=== PATIENT | female | born 1945 | race Two or more races ===

== ENCOUNTER → 2022-01-10 | Outpatient (CLI) | payer OTHER ==
[2022-01-10 08:02] LABS: Urine WBC None Seen /hpf (0 - 5)
[2022-01-10 08:15] LABS: Urine Bacteria NONE SEEN /hpf (None Seen); Urine Blood TRACE /uL (Negative)
[2022-01-10 08:38] LABS: Cholesterol 98 mg/dL (< 200); HDL Cholesterol 36 mg/dL (40-59); LDL Cholesterol 54 mg/dL (< 100); Triglycerides 230 mg/dL (< 150)
== END | disposition home or self-care (01) ==
LOC: LAB 07:29
PROVIDERS: ATTEND Internal Medicine
DX: Z00.00 Encounter for general adult medical examination without abnormal findings (principal); E78.5 Hyperlipidemia, unspecified; E11.9 Type 2 diabetes mellitus without complications; I10 Essential (primary) hypertension
CPT/HCPCS: 36415; 80061; 81001; 82043

== ENCOUNTER → 2022-08-22 | Outpatient (CLI) | payer OTHER ==
[2022-08-22 07:26] LABS: Basophils # (auto) 0.1 10 ^3/uL (0-0.2); Basophils % (auto) 0.6 % (0.0-2.0); Eosinophils # (auto) 0.3 10 ^3/uL (0-0.8); Eosinophils % (auto) 2.9 % (0.0-7.0); Hematocrit 39.8 % (36.0-46.0); Hemoglobin 13.4 g/dL (12.2-16.2); Lymphocytes # (auto) 2.7 10 ^3/uL (0.4-5.4); Lymphocytes % (auto) 25.2 % (10.0-50.0); Mean Corpuscular Hemoglobin 28.5 pg (28.0-32.0); Mean Corpuscular Hgb Conc. 33.7 g/dL (32.0-36.0); Mean Corpuscular Volume 84.7 fL (80.0-100.0); Monocytes # (auto) 0.5 10 ^3/uL (0-1.3); Neutrophils % (auto) 66.3 % (37.0-80.0); Nucleated Red Blood Cells % 0.1 %; Red Cell Distribution Width 14.4 % (11.8-14.3); White Blood Cell 10.6 10^3/uL (4.4-10.8)
[2022-08-22 08:00] LABS: Albumin 3.7 g/dL (3.4-5.0); Calcium 9.3 mg/dL (8.5-10.1); Potassium 4.5 mmol/L (3.5-5.1)
[2022-08-22 08:06] LABS: BUN/Creatinine Ratio 14.5 (10.0-20.0); Bilirubin, Total 0.5 mg/dL (0.2-1.0); Total Protein 7.9 g/dL (6.4-8.2)
== END | disposition home or self-care (01) ==
LOC: LAB 07:04
PROVIDERS: ATTEND Internal Medicine
DX: E78.5 Hyperlipidemia, unspecified (principal); R73.03 Prediabetes
CPT/HCPCS: 36415; 80053; 80061; 85025

== ENCOUNTER → 2022-11-20 | Outpatient (CLI) | payer OTHER ==
[2022-11-20 08:09] LABS: Cholesterol 106 mg/dL (< 200)
[2022-11-20 08:12] LABS: HDL Cholesterol 35 mg/dL (40-59); LDL Cholesterol 57 mg/dL (< 100); Triglycerides 228 mg/dL (< 150)
== END | disposition home or self-care (01) ==
LOC: LAB 06:26
PROVIDERS: ATTEND Internal Medicine
DX: E11.9 Type 2 diabetes mellitus without complications (principal); E78.5 Hyperlipidemia, unspecified
CPT/HCPCS: 36415; 80061; 83036

== ENCOUNTER → 2023-01-30 | Outpatient (CLI) | payer OTHER ==
[2023-01-30 08:24] LABS: Alanine Aminotransferase 19 U/L (7-40); Albumin 4.4 g/dL (3.2-4.8); Alkaline Phosphatase 105 U/L (46-116); Anion Gap 7.8 (5-15); Aspartate Aminotransferase 14 U/L (13-40); BUN/Creatinine Ratio 12.2 (10.0-20.0); Bilirubin, Total 0.4 mg/dL (0.2-1.0); Blood Urea Nitrogen 10 mg/dL (9-23); Calcium 9.5 mg/dL (8.5-10.1); Carbon Dioxide 25.2 mmol/L (20-30); Chloride 105 mmol/L (98-107); Cholesterol 105 mg/dL (< 200); Glucose 167 mg/dL (74-106); HDL Cholesterol 29 mg/dL (40-59); LDL Cholesterol 53 mg/dL (< 100); Potassium 4.1 mmol/L (3.5-5.1); Sodium 138 mmol/L (136-145); Total Protein 7.7 g/dL (5.7-8.2); Triglycerides 244 mg/dL (< 150)
== END | disposition home or self-care (01) ==
LOC: LAB 06:31
PROVIDERS: ATTEND Internal Medicine
DX: E11.9 Type 2 diabetes mellitus without complications (principal)
CPT/HCPCS: 36415; 80053; 80061; 83036

== ENCOUNTER → 2023-02-20 | Outpatient (CLI) | payer OTHER ==
[2023-02-20 07:39] LABS: Albumin 4.6 g/dL (3.2-4.8); Bilirubin, Direct 0.2 mg/dL (<0.3); Bilirubin, Total 0.5 mg/dL (0.2-1.0); Total Protein 7.9 g/dL (5.7-8.2)
== END | disposition home or self-care (01) ==
LOC: LAB 06:39
PROVIDERS: ATTEND Internal Medicine
DX: E11.9 Type 2 diabetes mellitus without complications (principal); I10 Essential (primary) hypertension; E78.5 Hyperlipidemia, unspecified
CPT/HCPCS: 36415; 80076

== ENCOUNTER → 2023-05-04 | Outpatient (CLI) | payer OTHER ==
[2023-05-04 07:26] LABS: Alanine Aminotransferase 20 U/L (7-40); Albumin 4.5 g/dL (3.2-4.8); Alkaline Phosphatase 131 U/L (46-116); Anion Gap 7 (5-15); Aspartate Aminotransferase 19 U/L (13-40); BUN/Creatinine Ratio 8.6 (10.0-20.0); Blood Urea Nitrogen 7 mg/dL (9-23); Carbon Dioxide 27 mmol/L (20-30); Chloride 105 mmol/L (98-107); Glucose 164 mg/dL (74-106); Potassium 4.5 mmol/L (3.5-5.1); Sodium 139 mmol/L (136-145)
[2023-05-04 07:27] LABS: Bilirubin, Total 0.4 mg/dL (0.2-1.0); Total Protein 7.6 g/dL (5.7-8.2)
[2023-05-04 07:56] LABS: Creatinine, Urine 79.26 mg/dL (30.0-125.0)
== END | disposition home or self-care (01) ==
LOC: LAB 06:24
PROVIDERS: ATTEND Internal Medicine
DX: I10 Essential (primary) hypertension (principal); E78.5 Hyperlipidemia, unspecified; E11.9 Type 2 diabetes mellitus without complications
CPT/HCPCS: 36415; 80053; 82043; 82570

== ENCOUNTER → 2023-08-12 | Outpatient (CLI) | payer OTHER ==
[2023-08-12 07:37] LABS: Albumin 4.3 g/dL (3.2-4.8)
[2023-08-12 07:38] LABS: Bilirubin, Direct 0.2 mg/dL (<0.3); Bilirubin, Total 0.4 mg/dL (0.2-1.0); Total Protein 7.2 g/dL (5.7-8.2)
== END | disposition home or self-care (01) ==
LOC: LAB 06:28
PROVIDERS: ATTEND Internal Medicine
DX: I10 Essential (primary) hypertension (principal); E11.9 Type 2 diabetes mellitus without complications; E78.5 Hyperlipidemia, unspecified
CPT/HCPCS: 36415; 80076; 83036

== ENCOUNTER → 2023-11-10 | Outpatient (CLI) | payer OTHER ==
[2023-11-10 06:49] LABS: Basophils # (auto) 0.1 10 ^3/uL (0-0.2); Basophils % (auto) 0.6 % (0.0-2.0); Eosinophils # (auto) 0.3 10 ^3/uL (0-0.8); Eosinophils % (auto) 3.4 % (0.0-7.0); Hematocrit 39.7 % (36.0-46.0); Hemoglobin 13.2 g/dL (12.2-16.2); Lymphocytes # (auto) 2.9 10 ^3/uL (0.4-5.4); Lymphocytes % (auto) 31.4 % (10.0-50.0); Mean Corpuscular Hemoglobin 28.3 pg (28.0-32.0); Mean Corpuscular Hgb Conc. 33.3 g/dL (32.0-36.0); Monocytes # (auto) 0.4 10 ^3/uL (0-1.3); Monocytes % (auto) 4.6 % (0.0-12.0); Neutrophils # (auto) 5.4 10 ^3/uL (1.6-8.6); Red Blood Cells 4.67 10^6/uL (4.0-5.20); Red Cell Distribution Width 14.7 % (11.8-14.3); White Blood Cell 9.1 10^3/uL (4.4-10.8)
[2023-11-10 07:19] LABS: Anion Gap 7 (5-15); Carbon Dioxide 29 mmol/L (20-30); Chloride 107 mmol/L (98-107); Potassium 4.3 mmol/L (3.5-5.1); Sodium 143 mmol/L (136-145)
[2023-11-10 07:25] LABS: Glucose 151 mg/dL (74-106)
[2023-11-10 07:26] LABS: BUN/Creatinine Ratio 10.3 (10.0-20.0); Blood Urea Nitrogen 8 mg/dL (9-23)
[2023-11-10 08:02] LABS: LDL Cholesterol 53 mg/dL (< 100); Triglycerides 175 mg/dL (< 150)
[2023-11-10 08:03] LABS: Cholesterol 100 mg/dL (< 200); HDL Cholesterol 30 mg/dL (40-59)
[2023-11-11 10:30] LABS: Urine Bacteria FEW /hpf (None Seen); Urine Blood TRACE /uL (Negative); Urine Clarity Clear (Clear); Urine Color Colorless (Yellow); Urine Protein, UAD Negative (Negative); Urine Specific Gravity 1.004 (1.001-1.035); Urine Urobilinogen Normal (Negative); Urine WBC 4 /hpf (0 - 5)
[2023-11-11 11:16] LABS: Creatinine, Urine 20.01 mg/dL (30.0-125.0)
[2023-11-11 11:18] LABS: Micro Albumin < 3.0 mg/L (<30.0)
[2023-11-11 11:32] LABS: Microalb/Creat Ratio, Urine < 14.00
== END | disposition home or self-care (01) ==
LOC: LAB 06:13
PROVIDERS: ATTEND Internal Medicine
DX: E11.9 Type 2 diabetes mellitus without complications (principal); E78.5 Hyperlipidemia, unspecified; I10 Essential (primary) hypertension
CPT/HCPCS: 36415; 80048; 80061; 81001; 82043; 82570; 83036; 85025

== ENCOUNTER → 2024-06-14 | Outpatient (CLI) | payer OTHER ==
[2024-06-14 07:14] LABS: LDL Cholesterol 46 mg/dL (< 100)
[2024-06-14 07:16] LABS: Cholesterol 98 mg/dL (< 200)
[2024-06-14 07:18] LABS: HDL Cholesterol 34 mg/dL (40-59); Triglycerides 225 mg/dL (< 150)
== END | disposition home or self-care (01) ==
LOC: LAB 06:24
PROVIDERS: ATTEND Internal Medicine
DX: E11.9 Type 2 diabetes mellitus without complications (principal); E78.5 Hyperlipidemia, unspecified
CPT/HCPCS: 36415; 80061; 83036

== ENCOUNTER → 2024-06-28 | Outpatient (CLI) | payer OTHER ==
[2024-06-28 07:07] LABS: Albumin 4.8 g/dL (3.2-4.8); Bilirubin, Direct 0.2 mg/dL (<0.3); Bilirubin, Total 0.4 mg/dL (0.2-1.0); Total Protein 7.8 g/dL (5.7-8.2)
== END | disposition home or self-care (01) ==
LOC: LAB 06:05
PROVIDERS: ATTEND Internal Medicine
DX: E72.19 Other disorders of sulfur-bearing amino-acid metabolism (principal)
CPT/HCPCS: 36415; 80076

== ENCOUNTER → 2024-09-12 | Outpatient (CLI) | payer OTHER ==
[2024-09-12 08:13] LABS: Albumin 4.5 g/dL (3.2-4.8); Bilirubin, Direct 0.2 mg/dL (<0.3); Total Protein 7.8 g/dL (5.7-8.2)
[2024-09-12 08:14] LABS: Bilirubin, Total 0.5 mg/dL (0.2-1.0)
== END | disposition home or self-care (01) ==
LOC: LAB 06:23
PROVIDERS: ATTEND Internal Medicine
DX: E11.9 Type 2 diabetes mellitus without complications (principal); E78.5 Hyperlipidemia, unspecified
CPT/HCPCS: 36415; 80061; 80076; 83036

== ENCOUNTER 2024-11-09 06:07 | Outpatient (CLI) | payer OTHER ==
[2024-11-09 07:28] LABS: Basophils # (auto) 0.1 10 ^3/uL (0-0.2); Basophils % (auto) 0.8 % (0.0-2.0); Eosinophils # (auto) 0.3 10 ^3/uL (0-0.8); Eosinophils % (auto) 3.5 % (0.0-7.0); Hematocrit 41.4 % (36.0-46.0); Hemoglobin 13.8 g/dL (12.2-16.2); Lymphocytes # (auto) 2.2 10 ^3/uL (0.4-5.4); Lymphocytes % (auto) 27.9 % (10.0-50.0); Mean Corpuscular Hemoglobin 28.1 pg (28.0-32.0); Mean Corpuscular Hgb Conc. 33.3 g/dL (32.0-36.0); Mean Corpuscular Volume 84.3 fL (80.0-100.0); Monocytes # (auto) 0.4 10 ^3/uL (0-1.3); Monocytes % (auto) 4.7 % (0.0-12.0); Neutrophils # (auto) 4.9 10 ^3/uL (1.6-8.6); Neutrophils % (auto) 63.1 % (37.0-80.0); Nucleated Red Blood Cells % 0.1 %; Platelet Count (auto) 256 10^3/uL (140-450); Red Blood Cells 4.91 10^6/uL (4.0-5.20); Red Cell Distribution Width 14.5 % (11.8-14.3); White Blood Cell 7.8 10^3/uL (4.4-10.8)
[2024-11-09 07:44] LABS: INR 1.03 (0.9-1.15); Partial Thromboplastin Time 27.1 SEC (24.5-34.5); Prothrombin Time 10.9 sec (9.3-11.8)
== END 2024-11-09 17:00 | disposition home or self-care (01) ==
LOC: LAB 06:07
PROVIDERS: ATTEND Internal Medicine
DX: Z01.812 Encounter for preprocedural laboratory examination (principal); J44.9 Chronic obstructive pulmonary disease, unspecified; R06.02 Shortness of breath
CPT/HCPCS: 36415; 85025; 85610; 85730

== ENCOUNTER 2024-11-15 07:49 | Outpatient (CLI) | payer OTHER ==
[2024-11-15 08:45] VITALS: BP 130/62; PULSE 87; RESP 28; TEMP 97.9; O2SAT 94
--- NOTE | 2024-11-15 09:06 | DVH ---
XY CHEST PORTABLE, HISTORY: POST LUNG BX COMPARISON: None None TECHNICAL DATA: 1 view of the chest was obtained. FINDINGS: Lines and tubes: None Cardiomediastinal silhouette: normal Pulmonary vasculature: normal Lung expansion: normal Lung airspace: Right basilar lung masses are visualized. Lung interstitium: normal Pleura: normal Pneumothorax: no Bones: Unremarkable Other: no IMPRESSION: No pneumothorax visualized. Right basilar lung masses are visualized.
[2024-11-15 09:15] VITALS: BP 131/66; PULSE 75; RESP 19; O2SAT 93
[2024-11-15 09:45] VITALS: BP 132/59; PULSE 73; RESP 22; O2SAT 93
--- NOTE | 2024-11-15 09:59 | DVH ---
CT CHEST WITHOUT CONTRAST, HISTORY: LUNG MASS PROCEDURE: Informed consent was obtained. The patient was placed prone on the CT scanner. A limited l ocalization CT scan of the lung was obtained. The skin overlying the lesion was prepped with chlorhex idine which was allowed to dry and draped in sterile fashion. Time out was performed. The skin and so ft tissues were infiltrated with Xylocaine, and IV sedation was administered. With intermittent CT gu idance, a 19 gauge Temno outer coaxial guiding needle was advanced into the right lung mass. The need le position was confirmed with CT scan. 2 core biopsies were obtained using Temno inner 20 gauge biop sy needle. The specimens were sent in formalin to pathology for analysis. A visceral blood patch was applied as the needle was withdrawn the needle was withdrawn, and post procedural CT obtained throug h the biopsy region. No immediate complication was identified was noted, and patient was transport to recovery in stable condition without respiratory distress. DLP = 1248 mGy-cm. FINDINGS: Limited CT scan demonstrates a soft tissue mass in the right lower lobe and the biopsy nee dle within the margin of the lung mass. No significant post biopsy hemorrhage or pneumothorax is note d IMPRESSION/PLAN: CT guided lung biopsy. Pathology pending. Bedrest until cleared by IR following post-biopsy CXRs.
[2024-11-15 10:15] VITALS: BP 117/55; PULSE 66; RESP 19; O2SAT 95
[2024-11-15 10:45] VITALS: BP 117/55; PULSE 70; RESP 18; O2SAT 96
[2024-11-15 11:15] VITALS: BP 132/60; PULSE 71; RESP 18; O2SAT 96
--- NOTE | 2024-11-15 11:36 | DVH ---
CHEST RADIOGRAPH Indication: POST LUNG BX Technique: Single frontal view of the chest was obtained Comparison: XY CHEST PORTABLE on DOS: 11/15/24, XY CHEST PORTABLE on DOS: 11/15/24 FINDINGS: Lines and tubes: None Cardiomediastinal silhouette: normal Pulmonary vasculature: normal Lung expansion: normal Lung airspace: Right basilar lung masses are visualized. Lung interstitium: normal Pleura: normal Pneumothorax: no Bones: Unremarkable Other: no IMPRESSION: No pneumothorax visualized. Right basilar lung masses are visualized.
[2024-11-15] MEDS ORDERED: ACETAMINOPHEN 325 MG TAB PO ONE (11:45)
== END 2024-11-15 17:00 | disposition home or self-care (01) ==
LOC: XYW 07:49
PROVIDERS: ATTEND Internal Medicine
DX: J98.4 Other disorders of lung (principal)
CPT/HCPCS: 10005; 32408; 71045; 71250; 77012

== ENCOUNTER 2024-12-12 06:05 | Outpatient (CLI) | payer OTHER ==
[2024-12-12 08:15] LABS: Triglycerides 200 mg/dL (< 150)
[2024-12-12 08:16] LABS: Cholesterol 127 mg/dL (< 200)
[2024-12-12 08:18] LABS: HDL Cholesterol 33 mg/dL (40-59)
== END 2024-12-12 17:00 | disposition home or self-care (01) ==
LOC: LAB 06:05
PROVIDERS: ATTEND Internal Medicine
DX: E11.9 Type 2 diabetes mellitus without complications (principal); E78.5 Hyperlipidemia, unspecified
CPT/HCPCS: 36415; 80061; 83036

== ENCOUNTER → 2024-12-23 | Outpatient (CLI) | payer OTHER ==
[2024-12-23 10:43] LABS: Chloride 102 mmol/L (98-107); Potassium 4.1 mmol/L (3.5-5.1); Sodium 137 mmol/L (136-145)
[2024-12-23 10:44] LABS: Anion Gap 10 (5-15); Calcium 9.9 mg/dL (8.7-10.4); Carbon Dioxide 25 mmol/L (20-31)
[2024-12-23 10:49] LABS: BUN/Creatinine Ratio 14.4 (10.0-20.0); Blood Urea Nitrogen 14 mg/dL (9-23); Glucose 215 mg/dL (74-106)
== END | disposition home or self-care (01) ==
LOC: LAB 09:23
PROVIDERS: ATTEND Internal Medicine
DX: R91.1 Solitary pulmonary nodule (principal)
CPT/HCPCS: 36415; 80048